=== PATIENT | female | born 1975 | race Hispanic/Latino ===

== ENCOUNTER 2016-12-27 19:29 | Emergency (ER) | payer BC ==
[~2016-12-27] VITALS: Ht 167.6 cm; Wt 77.1 kg
[2016-12-27] MEDS ORDERED: MAXA10TA14 PO (19:41)
[2016-12-27] MEDS ORDERED: TRIL150T PO (19:41)
[2016-12-27] MEDS ORDERED: XANA1TAB2 PO (19:41)
[2016-12-27] MEDS ORDERED: LEVO150T7 PO (19:41)
[2016-12-27] MEDS ORDERED: HYDR-3719 PO (19:41)
[2016-12-27] MEDS ORDERED: ZOLO100T PO (19:41)
[2016-12-27] MEDS ORDERED: NS 1,000 ML IV ONE (21:15)
[2016-12-27] MEDS ORDERED: METOCLOPRAMIDE INJ 10MG/2ML VIAL (J2765) IV ONE (21:15)
[2016-12-27] MEDS ORDERED: HYDROmorphone HCL 1 MG/ML SYRINGE (J1170) IV ONE (21:15)
[2016-12-27 21:37] LABS: BASO % 0.1 % (0.0-1.0); EOS % 0.3 % (0.0-3.0); LARGE UNSTAINED CELL % 0.5 % (0.0-4.0); LYMPH # 0.6 K/mm3 (1.5-4.5); LYMPH % 6.5 % (24.0-44.0); MEAN CORPUSCULAR HEMOGLOBIN 31.8 pg (27.0-33.0); MEAN CORPUSCULAR HGB CONC 34.1 g/dl (32.0-36.5); MEAN CORPUSCULAR VOLUME 93.1 fl (80.0-96.0); MONO # 0.2 K/mm3 (0.0-0.8); NEUTROPHILS # 8.7 K/mm3 (1.8-7.7); NEUTROPHILS % 90.6 % (36.0-66.0); PLATELET COUNT, AUTOMATED 291 k/mm3 (150-450); RED CELL DISTRIBUTION WIDTH 11.7 % (11.5-14.5); WHITE BLOOD COUNT 9.6 K/mm3 (4.0-10.0)
[2016-12-27 21:44] LABS: ALBUMIN/GLOBULIN RATIO 0.95 (1.00-1.93); ALKALINE PHOSPHATASE 60 U/L (45-117); ALT/SGPT 26 U/L (12-78); AMYLASE 41 U/L (25-115); ANION GAP 7 MEQ/L (8-16); AST/SGOT 16 U/L (15-37); BILIRUBIN,DIRECT < 0.1 MG/DL (0.0-0.2); BILIRUBIN,TOTAL 0.4 MG/DL (0.2-1.0); BLOOD UREA NITROGEN 11 MG/DL (7-18); CALCIUM LEVEL 9.1 MG/DL (8.5-10.1); CARBON DIOXIDE LEVEL 29 MEQ/L (21-32); CHLORIDE LEVEL 103 MEQ/L (98-107); GLOMERULAR FILTRATION RATE 58.6 (>58); GLUCOSE, FASTING 111 MG/DL (70-105); POTASSIUM SERUM 3.4 MEQ/L (3.5-5.1); SODIUM LEVEL 139 MEQ/L (136-145); TOTAL PROTEIN 8.2 GM/DL (6.4-8.2)
[2016-12-27] MEDS ORDERED: ZOFR4TAB3 PO (22:16)
[2016-12-27 23:01] VITALS: BP 135/70
--- NOTE | 2016-12-29 06:12 | ECGEPIP ---
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
== END 2016-12-27 23:03 | disposition home or self-care (01) ==
LOC: M ED 20:42
DX: K52.9 Noninfective gastroenteritis and colitis, unspecified (principal); Z52.4 Kidney donor; F41.9 Anxiety disorder, unspecified; Z88.5 Allergy status to narcotic agent; Z79.899 Other long term (current) drug therapy; G43.909 Migraine, unspecified, not intractable, without status migrainosus; F32.9 Major depressive disorder, single episode, unspecified
CPT/HCPCS: 36415; 80048; 80076; 82150; 83690; 85025; 93005; 96361; 96374; 96375; 99284; J1170; J2765

== ENCOUNTER 2016-12-30 00:52 | Observation (INO) | payer BC ==
[2016-12-30] VITALS (7 sets, daily range): BP systolic 109–143; BP diastolic 51–80
[~2016-12-30] VITALS: Ht 167.6 cm; Wt 81.0 kg
[~2016-12-30 00:52] MED LIST: HYDR-3719 PO; LEVO150T7 PO; MAXA10TA14 PO; TRIL150T PO; XANA1TAB2 PO; ZOFR4TAB3 PO; ZOLO100T PO
[2016-12-30] MEDS ORDERED: NS 1,000 ML IV ONE (01:30)
[2016-12-30] MEDS ORDERED: ONDANSETRON 4 MG TAB (S0181) PO ONE (01:30)
[2016-12-30] MEDS ORDERED: ONDANSETRON 4MG/2ML VIAL (J2405) As Ordered ONE ×3 (01:39→20:35)
[2016-12-30] MEDS ORDERED: ONDANSETRON 4MG/2ML VIAL (J2405) IV ONE ×2 (01:45→04:45)
[2016-12-30 01:52] LABS: BASO % 0.2 % (0.0-1.0); EOS % 0.2 % (0.0-3.0); LARGE UNSTAINED CELL # 0.1 K/mm3 (0.0-0.4); LARGE UNSTAINED CELL % 0.5 % (0.0-4.0); LYMPH # 0.8 K/mm3 (1.5-4.5); LYMPH % 7.9 % (24.0-44.0); MEAN CORPUSCULAR HEMOGLOBIN 32.7 pg (27.0-33.0); MEAN CORPUSCULAR HGB CONC 35.1 g/dl (32.0-36.5); MEAN CORPUSCULAR VOLUME 93.2 fl (80.0-96.0); MONO # 0.2 K/mm3 (0.0-0.8); NEUTROPHILS # 8.9 K/mm3 (1.8-7.7); NEUTROPHILS % 89.2 % (36.0-66.0); PLATELET COUNT, AUTOMATED 280 k/mm3 (150-450); RED CELL DISTRIBUTION WIDTH 11.7 % (11.5-14.5)
[2016-12-30 01:57] LABS: CONTROL LINE HCG INT CTR LINE PRESENT
[2016-12-30 02:03] LABS: ALBUMIN 3.9 GM/DL (3.2-5.2); ALBUMIN/GLOBULIN RATIO 1.03 (1.00-1.93); BILIRUBIN,DIRECT 0.1 MG/DL (0.0-0.2); BILIRUBIN,TOTAL 0.4 MG/DL (0.2-1.0); CALCIUM LEVEL 9.1 MG/DL (8.5-10.1); CREATININE FOR GFR 1.26 MG/DL (0.55-1.02); GLOMERULAR FILTRATION RATE 50.1 (>58); POTASSIUM SERUM 3.5 MEQ/L (3.5-5.1); TOTAL PROTEIN 7.7 GM/DL (6.4-8.2)
[2016-12-30] MEDS ORDERED: HYDROmorphone HCL 1 MG/ML SYRINGE (J1170) IV ONE ×2 (02:15→15:45)
[2016-12-30] MEDS ORDERED: ISOVUE-370 76% 100ML VIAL (Q9967) As Ordered ONE (02:25)
--- NOTE | 2016-12-30 03:40 | REPUSA ---
CLINICAL HISTORY: Abdominal pain. TECHNIQUE: Multiple axial, sagittal and coronal CT images were obtained through the abdomen and pelvi s after administration of intravenous contrast material. COMMENTS: The liver is of uniform attenuation without mass or defect. There is no intra or extrahepatic biliary ductal dilatation. The spleen is normal. The gallbladder is within normal limits. The pancreas is of normal contour and attenuation characteristics. There is no evidence of adrenal mass. Both kidneys demonstrate prompt and equal nephrograms. The kidneys are normal in size, shape and conf iguration. There is no evidence of renal or ureteral mass. No renal or ureteral calculi are identifie d. There is no hydroureter or hydronephrosis. Mild thickening of the appendix. Minimal surrounding fat stranding. Mild focal thickening of the tra nsverse colon. No evidence for small or large bowel obstruction. There is no evidence of abdominal as cites or lymphadenopathy. There is no evidence of intrinsic or extrinsic bladder mass. There is no pelvic ascites or lymphadeno kamran. Intrauterine device is seen. Images of the lung bases show no evidence of pleural or parenchymal mass. There are no pleural effusi ons. The bony structures are free of lytic or blastic lesions. Fat containing umbilical hernia without incarceration. IMPRESSION: Mild thickening of the appendix. Minimal surrounding fat stranding. A surgical consultation is suggested to exclude mild developing acute inflammatory changes of the jarvis endix. Prior left nephrectomy. Multifocal thickening of the transverse colon. Underdistention, spasm versus mild colitis. Thank you for your kind referral of this patient.
[2016-12-30] MEDS ORDERED: ACETAMINOPHEN TAB 650MG DOSE (2X325MG) PO PRN (09:15)
[2016-12-30] MEDS: LR 1,000 ML IV SCH ×2 (09:22→17:15)
[2016-12-30] MEDS ORDERED: NORCO, ANEXSIA 5/325MG TABLET (HYDROcodone/ACETAMINOPHEN) PO ONE (09:30)
[2016-12-30] MEDS: PANTOPRAZOLE 40MG INJ (PROTONIX) (C9113) IV SCH (09:52)
[2016-12-30] MEDS ORDERED: PROMETHAZINE INJ 25 MG/ML VIAL (J2550) IV PRN (11:15)
[2016-12-30 12:52] LABS: MAGNESIUM LEVEL 1.8 MG/DL (1.8-2.4); T UPTAKE 27 % (30-39); THYROXINE (T4) 2.3 UG/DL (4.5-12.0)
--- NOTE | 2016-12-30 13:08 | CR ---
DATE OF CONSULTATION: 12/30/2016 ATTENDING PHYSICIAN: Nusrat Figueroa MD PRIMARY CARE PROVIDER: Dr. Segundo Thomas in [place]. REASON FOR CONSULTATION: Preoperative optimization. CHIEF COMPLAINT: Abdominal pain. HISTORY OF PRESENT ILLNESS: Ms. Thrasher is a 41-year-old female with past medical history significant for anxiety, depression, hypothyroidism, ADHD and migraine headaches who presented to the hospital with abdominal pain. She reports that the abdominal pain started on Thursday. It started off in the periumbilical region and has spread diffusely and has radiated in her upper chest area to her left shoulder. She also reports subjective fevers/chills as well as nausea and vomiting since the abdominal pain started. She denies any diarrhea, constipation, significant weight changes, lightheadedness, dizziness, blood in the stool, trouble urinating, rashes or skin lesions. She had an abdominal CT performed which showed mild thickening of the appendix with minimal surrounding fat stranding. She has been evaluated by Dr. Vitale and hospitalist was consulted for optimization given her abnormal EKG. Patient denies any angina, chest pressure, chest pain, or shortness of breath with exertion. She denies any cardiovascular disease. No lung disease or renal disease. She denies any issues with anesthesia in the past and no family history of issues with anesthesia that she is aware of. She has METS greater than 4 at baseline. She is a nonsmoker. Denies any NSAID or ASA use. PAST MEDICAL HISTORY: 1. Anxiety. 2. Depression. 3. Migraine headaches. 4. Hypothyroidism. 5. Attention deficit hyperactivity disorder (ADHD). 6. Torn tendon for which she is on pain medication. PAST SURGICAL HISTORY: 1. Three sections. 2. Cholecystectomy. 3. Thyroidectomy. 4. Left kidney removal for elective organ donation. HOME MEDICATIONS: - Xanax 1 mg by mouth four times a day as needed - Synthroid 150 mcg by mouth daily - Zofran 4 mg by mouth every 4 hours as needed - Trileptal 150 mg by mouth at night - Maxalt 10 mg by mouth as needed - Zoloft 100 mg by mouth at night - Wilton one tablet by mouth every 4 hours as needed - multivitamin daily ALLERGIES: 1. MORPHINE (hives). SOCIAL HISTORY: The patient lives with her partner and daughter. She denies any tobacco use. No alcohol use or illicit drug use. There are four dogs in the home. 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 FAMILY HISTORY: Mom had history of depression and diabetes, from complications of diabetes at 52. She has a brother with diabetes. Her son has asthma. REVIEW OF SYSTEMS: As per history of present illness, all other 11 point review of systems were reviewed and unremarkable. PHYSICAL EXAMINATION: VITAL SIGNS: Temperature 99.5, pulse 52, respiratory rate 14, blood pressure 142/80, pulse oximetry 100% on room air. GENERAL: The patient is alert and oriented times three, in no acute distress. HEENT: Normocephalic, atraumatic. Extraocular muscles are intact. Pupils are equally round and reactive to light. No scleral icterus. Moist mucosa. NECK: Neck supple. No cervical lymphadenopathy. No thyromegaly. No jugular venous distension appreciated. HEART: Bradycardic, regular rhythm. No murmurs appreciated. LUNGS: Clear to auscultation bilaterally. No rales, rhonchi or wheezing. ABDOMEN: Soft. Mildly tender to deep palpation in the periumbilical and mid region. Nondistended. Bowel sounds are present. No rebound, guarding or rigidity. EXTREMITIES: No cyanosis or edema. Positive pedal pulses bilaterally. SKIN: Warm and dry. No rashes noted. NEUROLOGIC: No focal deficits. Cranial nerves II through XII are grossly intact. Motor and sensation intact. LABORATORY DATA: WBC 10.0, hemoglobin 14.8, hematocrit 42.1, platelet count 280 , sodium 138, potassium 3.5, chloride 103, carbon dioxide 27, anion gap 8, BUN 13, creatinine 1.26, GFR 50.1, fasting glucose 113, calcium 9.1, total bilirubin 0.4 , direct bilirubin 0.1, AST 23, ALT 30, alkaline phosphatase 52, total protein 7.7 , albumin 3.9, lipase 148, AST 62.6. Urinalysis showed trace ketones, otherwise negative. IMAGING: Abdominal/pelvis CT revealed mild thickening of the appendix, minimal surrounding fat stranding, prior left nephrectomy, multifocal thickening of the transverse colon secondary to spasm versus mild colitis as noted on radiology report. ASSESSMENT/PLAN: 1. Abdominal pain, likely secondary to appendicitis. She is being followed by Dr. Vitale, possible surgical intervention. Patient does not have any known cardiovascular, renal or lung disease. No problems with anesthesia. She denies any angina or shortness of breath with exertion. Her EKG showed sinus bradycardia with a PVC. Will check magnesium and make sure her electrolytes are all stable. She is hemodynamically stable. There was a question of a-fib on one of her EKGs, therefore we will place her on the telemetry unit for closer monitoring for any arrhythmia. Obtain echocardiogram. We will check T4 levels and cardiac markers and as long as those are within acceptable range, she is medically optimized to proceed with any surgical intervention. She will be monitored closely thereafter. 2. Hypothyroidism. The patient is currently on Synthroid. TSH was elevated. Will await T4 levels. 3. Anxiety and depression. Continue with Xanax and Zoloft. 4. Mild dehydration. Patient has been placed on Lactated Ringer's. 5. Migraine headaches. Patient takes Maxalt as needed. 6. Torn tendon. The patient takes Wilton as needed. Thank you for the consultation and allowing us to participate in the care of Ms. Thrasher. My preceptor for this patient encounter was Dr. Nusrat Figueroa. The preceptor was physically present in the building during the encounter and was fully available. As needed, all aspects of the patient interview, examination, medical decision making process, and medical care plan development were reviewed and approved by the preceptor. The preceptor is aware and concurs with the plan as stated in the body of this note and will attest to such by his/her cosignature. KAYE
--- NOTE | 2016-12-30 14:45 | ECHO ---
DATE OF STUDY: 12/30/2016 REFERRING PHYSICIAN: Dr. Nusrat Figueroa INDICATION: Abnormal ECG. HEIGHT: 168 cm. WEIGHT: 77.1 kilograms. MEASUREMENTS: Left atrium: 3.4 cm Aortic root: 3.0 cm Ventricular septum: 0.85 cm Posterior wall: 1.01 cm Left ventricle diastole: 4.8 cm LVOT: 2.29 cm Aortic annulus: 2.2 cm Inferior vena cava: 2.4 cm DOPPLER MEASUREMENTS: Very mild aortic regurgitation. Aortic valve velocity: 115 cm/s LVOT velocity: 78.2 cm/s LVOT VTI: 18.7 cm Very mild mitral regurgitation. Mitral E velocity: 85.9 cm/s Mitral A velocity: 65.2 cm/s Mitral deceleration time 187 milliseconds. Very mild tricuspid regurgitation. Estimated right ventricle systolic pressure: 20-25 mmHg assuming a right atrial pressure of 5-10 mmHg MITRAL ANNULAR TISSUE DOPPLER: E prime septal: 9.4 cm/s E prime lateral: 11.7 cm/s DESCRIPTION: Rhythm was remarkable for sinus bradycardia predominantly in the 40s. Image quality was fair. No pericardial effusion. This was a 2D, M-mode, color flow Doppler, and pulse wave Doppler examination and included mitral annular tissue Doppler. CONCLUSIONS: 1. Normal left ventricle internal dimensions and wall thickness. No left ventricle (LV) regional wall motion abnormalities. Normal LV systolic and diastolic function. Left ventricular ejection fraction (LVEF) 65% by visual estimate. 2. No pericardial effusion. 3. Very mild aortic sclerosis of a three-cusp aortic valve. Very mild aortic regurgitation. 4. Otherwise normal echocardiogram Doppler.
[2016-12-30] MEDS ORDERED: HYDROmorphone HCL 1 MG/ML SYRINGE (J1170) IV PRN (15:30)
[2016-12-30] MEDS: ONDANSETRON 4MG/2ML VIAL (J2405) IV PRN ×2 (15:54→23:05)
[2016-12-30] MEDS ORDERED: UNASYN 1.5 GM VIAL As Ordered ONE (19:31)
[2016-12-30] MEDS ORDERED: LIDOCAINE 1% SDV INJ 30 ML VIAL As Ordered ONE (19:37)
[2016-12-30] MEDS ORDERED: BUPIVACAINE HCL 0.25% 30 ML VIAL As Ordered ONE (19:37)
[2016-12-30] MEDS ORDERED: MIDAZOLAM INJ 2 MG/2 ML VIAL (J2250) As Ordered ONE (19:50)
[2016-12-30] MEDS ORDERED: PROPOFOL 200 MG/20 ML VIAL As Ordered ONE (19:50)
[2016-12-30] MEDS ORDERED: fentaNYL 250 MCG/5 ML INJECTION (J3010) As Ordered ONE (19:50)
[2016-12-30] MEDS ORDERED: LIDOCAINE 2% INJ 100 MG/5 ML SDV (FOR ANES.) As Ordered ONE (19:51)
[2016-12-30] MEDS ORDERED: ROCURONIUM BROMIDE 50 MG/5 ML VIAL As Ordered ONE (19:51)
[2016-12-30] MEDS ORDERED: METOCLOPRAMIDE INJ 10MG/2ML VIAL (J2765) As Ordered ONE (19:51)
[2016-12-30] MEDS ORDERED: GLYCOPYRROLATE INJ 0.2 MG/ML 2 ML VIAL As Ordered ONE ×2 (19:52→20:00)
[2016-12-30] MEDS ORDERED: NEOSTIGMINE 1MG/ML 5 ML SYRINGE (J2710) As Ordered ONE (19:53)
[2016-12-30] MEDS ORDERED: fentaNYL 100 MCG/2 ML INJECTION (J3010) As Ordered ONE ×2 (20:34→20:55)
[2016-12-30] MEDS: fentaNYL 100 MCG/2 ML INJECTION (J3010) IV PRN ×8 (20:35→21:20)
[2016-12-30] MEDS ORDERED: MEPERIDINE INJ 25 MG/ML VIAL (J2175) IV PRN (20:45)
[2016-12-30] MEDS ORDERED: PERCOCET 5MG/325MG TAB PO PRN (20:45)
[2016-12-30] MEDS ORDERED: METOCLOPRAMIDE INJ 10MG/2ML VIAL (J2765) IV PRN (20:45)
[2016-12-30] MEDS ORDERED: LR 1,000 ML IV SCH ×2 (20:45→23:00)
[2016-12-30] MEDS ORDERED: ONDANSETRON 4MG/2ML VIAL (J2405) IV PRN (20:45)
[2016-12-30] MEDS: SERTRALINE 100 MG TAB PO SCH (21:00)
[2016-12-30] MEDS: OXcarbazepine 150 MG TAB PO SCH (21:00)
[2016-12-30] MEDS: NORCO, ANEXSIA 5/325MG TABLET (HYDROcodone/ACETAMINOPHEN) PO PRN (23:05)
[2016-12-31 01:00] VITALS: BP 93/55
[2016-12-31] MEDS: HYDROmorphone HCL 1 MG/ML SYRINGE (J1170) IV PRN ×3 (02:36→18:44)
[2016-12-31] MEDS: NORCO, ANEXSIA 5/325MG TABLET (HYDROcodone/ACETAMINOPHEN) PO PRN ×3 (03:11→20:03)
[2016-12-31 04:00] VITALS: BP 103/61
[2016-12-31] MEDS: ALPRAZolam 0.5 MG TAB PO PRN ×3 (04:07→20:14)
[2016-12-31] MEDS: LEVOTHYROXINE 0.125 MG TAB (125 MCG) PO SCH (05:17)
[2016-12-31] MEDS: ONDANSETRON 4MG/2ML VIAL (J2405) IV PRN (05:17)
[2016-12-31 05:52] LABS: BASO % 0.1 % (0.0-1.0); EOS % 0.3 % (0.0-3.0); LARGE UNSTAINED CELL % 0.3 % (0.0-4.0); LYMPH % 6.7 % (24.0-44.0); MEAN CORPUSCULAR HEMOGLOBIN 31.9 pg (27.0-33.0); MEAN CORPUSCULAR HGB CONC 34.1 g/dl (32.0-36.5); MEAN CORPUSCULAR VOLUME 93.6 fl (80.0-96.0); MONO # 0.4 K/mm3 (0.0-0.8); MONO % 2.9 % (0.0-5.0); NEUTROPHILS # 12.9 K/mm3 (1.8-7.7); NEUTROPHILS % 89.8 % (36.0-66.0); PLATELET COUNT, AUTOMATED 213 k/mm3 (150-450); WHITE BLOOD COUNT 14.4 K/mm3 (4.0-10.0)
[2016-12-31 06:12] LABS: CREATININE FOR GFR 1.23 MG/DL (0.55-1.02); GLOMERULAR FILTRATION RATE 51.5 (>58); MAGNESIUM LEVEL 1.7 MG/DL (1.8-2.4); POTASSIUM SERUM 3.3 MEQ/L (3.5-5.1)
[2016-12-31 06:21] LABS: CALCIUM LEVEL 8.2 MG/DL (8.5-10.1)
[2016-12-31 07:30] VITALS: BP 134/69
[2016-12-31] MEDS ORDERED: POTASSIUM CHLORIDE 10 MEQ SR TABLET PO ONE (08:15)
[2016-12-31] MEDS ORDERED: MAG SULF 1GM/100ML (MAG RUN) 1 GM in APPROPRIATE DILUENT 1 EA IV ONE (08:15)
[2016-12-31] MEDS: PANTOPRAZOLE 40MG INJ (PROTONIX) (C9113) IV SCH (09:09)
[2016-12-31] MEDS: LR 1,000 ML IV SCH ×2 (09:12→16:42)
[2016-12-31] MEDS ORDERED: ZOFR4TAB3 PO (09:42)
[2016-12-31] MEDS ORDERED: KETOROLAC 30 MG/ML VIAL (J1885) IV ONE (12:00)
--- NOTE | 2016-12-31 15:27 | RO ---
DATE OF PROCEDURE: 12/30/2016 PREOPERATIVE DIAGNOSIS: Acute appendicitis. POSTPROCEDURE DIAGNOSIS: Mild early acute appendicitis with inflammation at the tip of the appendix. PROCEDURE: Laparoscopic appendectomy. SURGEON: Dr. Vitale TANK CREWMEMBER: ANESTHESIA: General anesthesia. ESTIMATED BLOOD LOSS: 10 mL COMPLICATIONS: None. REMARKS: The patient tolerated procedure well. PROCEDURE NOTE: Ms. Thrasher is a 41-year-old female presenting to the emergency department twice in the past 3 days with continued pain over the right side of her abdomen with prominent nausea and vomiting. Her evaluation shows normal white cell count but possible early acute appendicitis on CT scan. She is mildly tender over the right lower quadrant area. It was decided to perform laparoscopy to verify appendicitis. She, for unknown reason, had an EKG done during her visit on 12/27/2016 that showed some multifocal P-waves, possible atrial fibrillation. We asked the hospitalist service to see here preoperatively. She was placed in a monitored bed. An echocardiogram was normal. I had a conversation with the tour production supervisor cork insulation installer, Dr. Rosales, who thinks that the patient, due to the pain, vasovagal and did not think that it was anything organic causing the EKG findings. Thus, we proceeded with the surgery. The patient received 3 grams of Unasyn preoperatively. She was brought to the operating room and laid supine on the table. General endotracheal anesthesia was started. Her abdomen was prepped and draped in usual sterile fashion. After surgical time-out, we began our surgery. Entry into the abdomen was done for an incision on the bottom portion of her umbilicus where she had a previous incision. A Veress needle inserted and CO2 insufflation started to a pressure of 15 mmHg. Using the same incision, a 12 mm Visiport was placed under direct vision of laparoscope. Insertion site was inspected for injury and none was found. Two other working ports were placed under direct vision of the suprapubic area and left lower quadrant area. She was placed in a mild Trendelenburg position with the right side tilted up to further expose the appendix. The cecum was found midway on her right side close to the tip of the liver, probably explaining the pain over her right upper quadrant area more than right lower quadrant area. There was a small amount of serous fluid at the right gutter, which looks reactive. The small bowel looks normal. Her right ovary looks normal. No other obvious pathology found. The appendix was grasped. This was elevated into view. It was tethered to the sidewall with its mesentery. There was a small amount of the distal appendix that looks mildly inflamed with mild vascular congestion. Otherwise, the rest of the appendix appears normal. Using a harmonic scalpel, the mesoappendix was divided down to its base. Two Vicryl Endoloops were used to ligate the appendix at its base. The appendix was divided in between the Vicryl Endoloops. The appendiceal stump looks healthy. This was further cauterized. The appendix was delivered into an EndoCatch bag retrieved through the umbilical port site easily. On reinsufflation, the stump appears healthy. No bleeding noted. Survey of the abdomen did not reveal any further pathology nor any signs of injury. The abdomen was then deflated. All ports removed the umbilical fascial defect repaired with #0 Vicryl in mattress fashion. Skin incisions closed with #4-0 Monocryl. Steri-Strips and gauze dressings then placed. The patient was promptly awakened, extubated, brought to recovery room stable.
[2016-12-31 16:00] VITALS: BP 102/57
[2016-12-31 18:19] LABS: CALCIUM LEVEL 7.6 MG/DL (8.5-10.1); CREATININE FOR GFR 1.28 MG/DL (0.55-1.02); GLOMERULAR FILTRATION RATE 49.2 (>58); POTASSIUM SERUM 3.5 MEQ/L (3.5-5.1)
[2016-12-31] MEDS: SERTRALINE 100 MG TAB PO SCH (20:02)
[2016-12-31] MEDS: OXcarbazepine 150 MG TAB PO SCH (20:02)
[2016-12-31 22:00] VITALS: BP 114/59
[2017-01-01] MEDS: NORCO, ANEXSIA 5/325MG TABLET (HYDROcodone/ACETAMINOPHEN) PO PRN ×3 (00:30→15:08)
[2017-01-01] MEDS: HYDROmorphone HCL 1 MG/ML SYRINGE (J1170) IV PRN (02:00)
[2017-01-01] MEDS: LEVOTHYROXINE 0.125 MG TAB (125 MCG) PO SCH (05:27)
[2017-01-01 06:00] VITALS: BP 108/68
[2017-01-01 06:46] LABS: CALCIUM LEVEL 7.6 MG/DL (8.5-10.1); CREATININE FOR GFR 1.19 MG/DL (0.55-1.02); GLOMERULAR FILTRATION RATE 53.5 (>58); MAGNESIUM LEVEL 2.1 MG/DL (1.8-2.4); POTASSIUM SERUM 3.4 MEQ/L (3.5-5.1)
[2017-01-01 06:51] LABS: BASO % 0.2 % (0.0-1.0); EOS # 0.1 K/mm3 (0.0-0.50); EOS % 0.7 % (0.0-3.0); LARGE UNSTAINED CELL % 0.4 % (0.0-4.0); LYMPH # 1.5 K/mm3 (1.5-4.5); LYMPH % 13.5 % (24.0-44.0); MEAN CORPUSCULAR HEMOGLOBIN 31.6 pg (27.0-33.0); MEAN CORPUSCULAR HGB CONC 33.4 g/dl (32.0-36.5); MEAN CORPUSCULAR VOLUME 94.4 fl (80.0-96.0); MONO # 0.3 K/mm3 (0.0-0.8); MONO % 2.8 % (0.0-5.0); NEUTROPHILS # 8.7 K/mm3 (1.8-7.7); NEUTROPHILS % 82.4 % (36.0-66.0); PLATELET COUNT, AUTOMATED 186 k/mm3 (150-450); RED CELL DISTRIBUTION WIDTH 12.3 % (11.5-14.5); WHITE BLOOD COUNT 10.6 K/mm3 (4.0-10.0)
[2017-01-01] MEDS ORDERED: INFLUENZA QUADRIVALENT PF VACCINE 0.5ML SYRINGE/VIAL (90686) IM ONE (09:00)
[2017-01-01] MEDS: PANTOPRAZOLE 40MG INJ (PROTONIX) (C9113) IV SCH (09:45)
[2017-01-01] MEDS ORDERED: POTASSIUM CHLORIDE 10 MEQ SR TABLET PO ONE (10:00)
[2017-01-01] MEDS ORDERED: LEVO125T3 PO (10:38)
[2017-01-01] MEDS: HYDROmorphone HCL 1 MG/ML SYRINGE (J1170) IV ONE ×2 (11:21→12:49)
--- NOTE | 2017-01-01 11:40 | IPN ---
DATE: 01/01/2017 The patient is seen and examined at the bedside. Chart has been reviewed. This morning, the patient still complains of pain at the surgical site. No nausea, vomiting, tolerating her diet well. No other issues. Per nursing, requesting IV Dilaudid for pain control. Denies any chest pain or pressure, tightness, lightheadedness, dizziness. She had a bowel movement yesterday which was soft, which caused increased pain at the surgical site. Afebrile overnight. Current temperature 96.6, pulse 64, respiratory rate 17, blood pressure 108/68, 96% on room air. Generally, the patient is awake, alert, oriented times three answering questions appropriately. No respiratory muscle use. Anicteric sclerae. No jaundice. No jugular venous distention. No thyromegaly. Moist mucous membranes. Lungs are clear to auscultation. No wheezing, rales or rhonchi. Heart: S1, S2, sinus rhythm. Abdomen is soft, slightly tender on palpation. Postsurgical changes. No purulent drainage. No hepatosplenomegaly. No rebound or guarding. Extremities: No cyanosis, clubbing or pitting edema. White count 10, hemoglobin 11, hematocrit 33, platelet count 186. Sodium 141, potassium 3.4, chloride 106, bicarbonate 29, BUN 6, creatinine 1.19, glucose 91. ASSESSMENT/PLAN: This is a 41-year-old female with history of anxiety, depression, migraine, hypothyroidism, attention deficit hyperactivity disorder, torn tendon on chronic pain medication, three sections, cholecystectomy, thyroidectomy, left kidney removal for elective organ donation admitted under surgical services for acute appendicitis, preop optimization and evaluation of abnormal EKG was done by hospitalist service on 12/30/2016. The patient was placed on telemetry. She remains in sinus rhythm, bradycardic with no symptoms. Echo was normal. CURRENT ISSUE: 1. History of hypothyroidism on optimized thyroid medications. Currently on 0.1875 daily. 2. Abnormal EKG, sinus bradycardia with normal echocardiogram. No further evaluation. 3. Acute appendicitis with postop pain per primary service. 4. Anxiety/depression, chronic: Continue on psychiatric medications, Zoloft. 5. Chronic pain. 6. Deep venous thrombosis prophylaxis: Compression stockings. 7. Acute kidney injury, status post IV fluids improved. DISPOSITION: No other acute medication issues. Will sign off, reconsult as needed. The patient may be discharged home.
[2017-01-01] MEDS: ALPRAZolam 0.5 MG TAB PO PRN (13:55)
[2017-01-01 14:00] VITALS: BP 120/67
--- NOTE | 2017-01-01 17:47 | ECGEPIP ---
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
--- NOTE | 2017-01-01 17:48 | ECGEPIP ---
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
--- NOTE | 2017-01-01 18:22 | ECGEPIP ---
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
== END 2017-01-01 16:02 | disposition home or self-care (01) ==
LOC: M ED 04:06 → M ED INP 09:03 → M PED 10:39 → M OBS 12:13 → M PCU 12:15 → M MSPAV 12-31 15:55
PROVIDERS: ADMIT Surgery; ATTEND Surgery
DX: K35.89 Other acute appendicitis (principal); E03.9 Hypothyroidism, unspecified; E86.0 Dehydration; F90.9 Attention-deficit hyperactivity disorder, unspecified type; F41.9 Anxiety disorder, unspecified; F32.9 Major depressive disorder, single episode, unspecified; Z79.899 Other long term (current) drug therapy; Z88.5 Allergy status to narcotic agent
CPT/HCPCS: 36415; 44970; 74177; 80048; 80061; 80076; 81001; 82550; 82553; 83690; 83735; 84436; 84443; 84479; 84703; 85025; 88304; 90471; 90686; 93005; 93041; 96361; 96374; 96375; 96376; 99285; C9113; J1170; J1885; J2250; J2405; J2710; J2765; J3010; J3475; Q9967